=== PATIENT | female | born 2000 | race African-American/Black ===

== ENCOUNTER 2020-10-15 01:21 | Emergency (ER) | payer OTHER, SELFPAY ==
[2020-10-15 01:22] VITALS: BP 159/60; PULSE 96; RESP 18; TEMP 36.8; O2SAT 100
[2020-10-15] MEDS: HYDROcodone/acetaminophen (*CRX) 5-325 MG TABLET 1 TAB PO (02:29)
[2020-10-15 03:00] VITALS: BP 142/95; PULSE 77; RESP 14; O2SAT 100
--- NOTE | 2020-10-15 03:34 | ED_ITS ---
HPI - Dental/Oral General Chief complaint: Dental/Oral Stated complaint: mouth pain Time Seen by Provider: 10/15/20 01:30 History of Present Illness HPI Narrative: Patient is a 20-year-old female who presents ER with pain tooth #18 and 31. She has 2 fractures to these teeth that are longstanding but they have increasing pain over the last couple days has been taking ibuprofen without relief. No facial swelling. No drainage. No fevers or chills or sweats. No difficulty breathing or swallowing. Hurts with eating. Related Data Home Medications Medication Instructions Recorded Confirmed acyclovir 10/15/20 Allergies Allergy/AdvReac Type Severity Reaction Status Date / Time No Known Allergies Allergy Verified 10/15/20 01:24 Review of Systems Constitutional: Constitutional: Denies chills, Denies fever(s) and Denies weakness ENT: Denies dysphagia and Denies sore throat Comments: + Toothache, no facial swelling Respiratory: Respiratory: Denies dyspnea Gastrointestinal: Gastrointestinal: Denies abdominal pain, Denies nausea and Denies vomiting PMFSH Past Medical History Medical History (Updated 10/15/20 @ 03:52 by Gerald Sanchez MD) Healthy female adult Surgical History Surgical History (Updated 10/15/20 @ 03:52 by Gerald Sanchez MD) No history of previous surgery Social History Social History (Updated 10/15/20 @ 03:52 by Gerald Sanchez MD) Smoking status: Never smoker Exam Narrative: GENERAL: Well-appearing, well-nourished, and in no acute distress. HEAD: Normocephalic, atraumatic. ENT: Mucous membranes moist. Fractures to tooth #18 and 31. Missing teeth impacting at #31. NEURO: Alert and oriented x3. PSYCH: Normal mood and affect. Course Course Emergency Course: [place] for pain here. Will discharge with Augmentin. Needs dental referral. Vital Signs Vital signs: Vital Signs Temperature 98.3 F 10/15/20 01:22 Pulse Rate 96 10/15/20 01:22 Respiratory Rate 18 10/15/20 01:22 Blood Pressure 159/60 H 10/15/20 01:22 Pulse Oximetry 100 10/15/20 01:22 Temperature 98.3 F 10/15/20 01:22 Pulse Rate 77 10/15/20 03:00 Respiratory Rate 14 10/15/20 03:00 Blood Pressure 142/95 H 10/15/20 03:00 Pulse Oximetry 100 10/15/20 03:00 Discharge Plan Discharge Clinical Impression: Toothache Patient Disposition: Home, Self-Care Condition: Stable Instructions: Toothache (ED) Additional Instructions: Return the ER if you fever over 100.4 ?F, you have facial swelling, you have additional concerns. Purchase dental wax to help with your discomfort. Prescriptions: New amoxicillin-pot clavulanate [Augmentin] 875-125 mg tablet 1 tablet PO Q12H Qty: 14 RF: 0 No Action acyclovir 800 mg tablet RF: 0 Follow-up/Referrals: Dental Referral Line [Outside] - 1 Week Tayo Avery MD [Primary Care Provider] -
[2020-10-15 03:44] VITALS: BP 140/90; PULSE 80; RESP 16; O2SAT 100
== END 2020-10-15 03:44 | disposition home or self-care (01) ==
PROVIDERS: Emergency Provider Emergency Medicine; PCP Obstetrics & Gynecology
DX: K08.89 Other specified disorders of teeth and supporting structures (principal)
CPT/HCPCS: 99283; A9270